=== PATIENT | male | born 1950 | race Caucasian/White ===

== ENCOUNTER 2021-08-02 12:53 | Emergency (ER) | payer BC ==
[~2021-08-02] VITALS: Ht 180.3 cm; Wt 82.0 kg
[2021-08-02] MEDS ORDERED: LIDOCAINE 5% PATCH TOP SCH (13:30)
[2021-08-02] MEDS ORDERED: HYDROCODONE/ACETAMINOPHEN 5/325MG TABLET PO ONE (13:30)
[2021-08-02] MEDS ORDERED: HYDROCODONE/ACETAMINOPHEN 5/325MG TABLET PO NR (16:00)
[2021-08-02] MEDS ORDERED: HYDR-4001 MT (17:44)
[2021-08-02] MEDS ORDERED: LIDO700A15 TP (17:44)
[2021-08-02] MEDS ORDERED: IBUP-2029 MT (17:44)
[2021-08-02 18:45] VITALS: BP 128/71
== END 2021-08-02 18:51 | disposition home or self-care (01) ==
LOC: ER 12:53
DX: S22.43XA Multiple fractures of ribs, bilateral, initial encounter for closed fracture (principal); W01.0XXA Fall on same level from slipping, tripping and stumbling without subsequent striking against object, initial encounter; Y93.89 Activity, other specified; Y92.89 Other specified places as the place of occurrence of the external cause; Y99.8 Other external cause status; F10.229 Alcohol dependence with intoxication, unspecified; Y90.0 Blood alcohol level of less than 20 mg/100 ml; Z85.6 Personal history of leukemia
CPT/HCPCS: 71250; 99284